=== PATIENT | female | born 1940 | race Two or more races ===

== ENCOUNTER 2018-05-01 12:20 | Outpatient (CLI) | payer MEDICARE, BC | END 2018-05-01 23:59 | disposition home or self-care (01) | LOC: WOU 12:20 | PROVIDERS: ATTEND Surgery | DX: Z47.1 Aftercare following joint replacement surgery (principal); Z96.651 Presence of right artificial knee joint; Z96.649 Presence of unspecified artificial hip joint; I25.10 Atherosclerotic heart disease of native coronary artery without angina pectoris; I10 Essential (primary) hypertension; L90.5 Scar conditions and fibrosis of skin; Z87.891 Personal history of nicotine dependence | CPT/HCPCS: A6402; G0463 ==

== ENCOUNTER 2018-05-05 11:29 | Outpatient (CLI) | payer MEDICARE, BC | END 2018-05-05 23:59 | disposition home health service (06) | LOC: WOU 11:29 | PROVIDERS: ATTEND Podiatrist Foot & Ankle Surgery | DX: I70.232 Atherosclerosis of native arteries of right leg with ulceration of calf (principal); L97.219 Non-pressure chronic ulcer of right calf with unspecified severity; I25.10 Atherosclerotic heart disease of native coronary artery without angina pectoris; I10 Essential (primary) hypertension; L90.5 Scar conditions and fibrosis of skin; Z87.891 Personal history of nicotine dependence; Z96.651 Presence of right artificial knee joint; Z96.649 Presence of unspecified artificial hip joint | CPT/HCPCS: A6402; G0463 ==

== ENCOUNTER 2018-05-06 13:55 | Outpatient (CLI) | payer MEDICARE, BC | END 2018-05-06 23:59 | disposition home or self-care (01) | LOC: WOU 13:55 | PROVIDERS: ATTEND Podiatrist Foot & Ankle Surgery | DX: S81.801A Unspecified open wound, right lower leg, initial encounter (principal); X58.XXXA Exposure to other specified factors, initial encounter; Y92.89 Other specified places as the place of occurrence of the external cause; I70.221 Atherosclerosis of native arteries of extremities with rest pain, right leg ==

== ENCOUNTER 2018-05-12 13:05 | Outpatient (CLI) | payer MEDICARE, BC | END 2018-05-12 23:59 | disposition home health service (06) | LOC: WOU 13:05 | PROVIDERS: ATTEND Podiatrist Foot & Ankle Surgery | DX: I70.232 Atherosclerosis of native arteries of right leg with ulceration of calf (principal); L90.5 Scar conditions and fibrosis of skin; L03.115 Cellulitis of right lower limb; I10 Essential (primary) hypertension; I25.10 Atherosclerotic heart disease of native coronary artery without angina pectoris; Z96.651 Presence of right artificial knee joint; Z87.891 Personal history of nicotine dependence; L97.819 Non-pressure chronic ulcer of other part of right lower leg with unspecified severity | CPT/HCPCS: A6402; G0463 ==